=== PATIENT | female | born 1990 | race Two or more races ===

== ENCOUNTER 2022-12-31 13:37 | Emergency (ER) | payer OTHER ==
[~2022-12-31] VITALS: Ht 152.4 cm; Wt 54.4 kg
== END 2022-12-31 22:20 | disposition home or self-care (01) ==
LOC: ER 13:37
DX: R42 Dizziness and giddiness (principal); Z88.0 Allergy status to penicillin; Z88.8 Allergy status to other drugs, medicaments and biological substances